=== PATIENT | male | born 1975 | race Two or more races ===

== ENCOUNTER 2018-01-08 06:20 | Day surgery (SDC) | payer OTHER | END 2018-01-08 14:40 | disposition home or self-care (01) | LOC: CIR.AMB 06:20 | DX: K40.90 Unilateral inguinal hernia, without obstruction or gangrene, not specified as recurrent (principal) ==

== ENCOUNTER 2018-04-01 17:49 | Emergency (ER) | payer OTHER ==
[~2018-04-01] VITALS: Ht 188 cm; Wt 77.1 kg
[2018-04-01] MEDS ORDERED: PERCOCET 5-3251 EACH PO (19:13)
== END 2018-04-01 19:30 | disposition home or self-care (01) ==
LOC: ER 17:49
DX: H66.3X2 Other chronic suppurative otitis media, left ear (principal)

== ENCOUNTER → 2022-12-19 | Outpatient (CLI) | payer OTHER ==
[~2022-12-19] MED LIST: PERCOCET 5-3251 EACH PO
== END | disposition home or self-care (01) ==
LOC: SONOGRAMA 14:05
DX: N39.43 Post-void dribbling (principal)

== ENCOUNTER 2023-03-01 12:13 | Outpatient (CLI) | payer OTHER | END 2023-03-01 12:22 | disposition home or self-care (01) | LOC: RAD 12:13 | PROVIDERS: ATTEND Physical Medicine & Rehabilitation | DX: M54.59 Other low back pain (principal); M25.531 Pain in right wrist; M25.631 Stiffness of right wrist, not elsewhere classified; M25.621 Stiffness of right elbow, not elsewhere classified ==

== ENCOUNTER 2023-05-10 12:23 | Outpatient (CLI) | payer OTHER | END 2023-05-10 12:25 | disposition home or self-care (01) | LOC: NUCLEAR 12:23 | PROVIDERS: ATTEND Internal Medicine | DX: Z13.820 Encounter for screening for osteoporosis (principal) ==

== ENCOUNTER 2024-06-11 14:05 | Outpatient (CLI) | payer OTHER | END 2024-06-11 14:20 | disposition home or self-care (01) | LOC: RAD 14:05 | PROVIDERS: ATTEND Internal Medicine | DX: M25.532 Pain in left wrist (principal) ==

== ENCOUNTER 2024-08-21 08:10 | Outpatient (CLI) | payer OTHER | END 2024-08-21 08:11 | disposition home or self-care (01) | LOC: TOM 08:10 | PROVIDERS: ATTEND Internal Medicine | DX: N39.498 Other specified urinary incontinence (principal); R10.9 Unspecified abdominal pain | CPT/HCPCS: 74177; Q9965 ==